=== PATIENT | female | born 1970 | race Caucasian/White ===

== ENCOUNTER 2019-10-17 10:35 | Emergency (ER) | payer OTHER ==
[~2019-10-17] VITALS: Ht 157.5 cm; Wt 81.8 kg
[2019-10-17 10:47] VITALS: BP 122/76; TEMP 97.6
[2019-10-17] MEDS ORDERED: MOTRIN 800800 MG/TAB PO (11:00)
[2019-10-17] MEDS ORDERED: FLEXERIL 1010 MG/TAB PO (11:27)
[2019-10-17 11:35] VITALS: PULSE 78
== END 2019-10-17 11:40 | disposition home or self-care (01) ==
LOC: COL.ER 10:35
DX: M79.601 Pain in right arm (principal); M79.651 Pain in right thigh

== ENCOUNTER 2021-10-11 18:08 | Emergency (ER) | payer OTHER ==
[~2021-10-11] VITALS: Ht 157.5 cm; Wt 81.8 kg
[~2021-10-11 18:08] MED LIST: FLEXERIL 1010 MG/TAB PO; MOTRIN 800800 MG/TAB PO
[2021-10-11 19:16] VITALS: BP 127/74; PULSE 74; TEMP 98.5
== END 2021-10-11 19:16 | disposition home or self-care (01) ==
LOC: COL.ER 18:08
DX: S93.402A Sprain of unspecified ligament of left ankle, initial encounter (principal); W01.0XXA Fall on same level from slipping, tripping and stumbling without subsequent striking against object, initial encounter; Y92.59 Other trade areas as the place of occurrence of the external cause; Y99.0 Civilian activity done for income or pay